=== PATIENT | male | born 1960 | race Caucasian/White ===

== ENCOUNTER 2023-09-25 12:44 | Inpatient (IN) | payer MEDICARE, OTHER ==
[~2023-09-25] VITALS: Ht 167.6 cm; Wt 65.8 kg
[2023-09-25] MEDS ORDERED: ASPI81TA31 PO (13:17)
[2023-09-25] MEDS ORDERED: ALBU2.5V13 NEB (13:17)
[2023-09-25] MEDS ORDERED: HYDR-894 PO (13:17)
[2023-09-25] MEDS ORDERED: ATOR10TA PO (13:17)
[2023-09-25] MEDS ORDERED: MULTIVITAL-M PO (13:17)
[2023-09-25] MEDS ORDERED: BISA10SU61 RC (13:17)
[2023-09-25] MEDS ORDERED: ACET325T53 PO (13:17)
[2023-09-25] MEDS ORDERED: LISI20TA30 PO (13:17)
[2023-09-25] MEDS ORDERED: VITAMIN D3 PO (13:17)
[2023-09-25] MEDS ORDERED: FURO20TA4 PO (13:17)
[2023-09-25] MEDS ORDERED: ASCO500C18 PO (13:17)
[2023-09-25] MEDS ORDERED: METF-494 PO (13:17)
[2023-09-25] MEDS ORDERED: DOCU100T2 PO (13:17)
[2023-09-25] MEDS ORDERED: LACT10SO58 PO (13:17)
[2023-09-25] MEDS ORDERED: MAGN400O6 PO (13:17)
[2023-09-25] MEDS ORDERED: ACET-2030 PO (13:17)
[2023-09-25] MEDS ORDERED: ATOR20TA PO (13:17)
[2023-09-25] MEDS ORDERED: NA P133E RC (13:17)
[2023-09-25] MEDS ORDERED: AMLO-212 PO (13:17)
[2023-09-25] MEDS ORDERED: MELA5TAB20 PO (13:17)
[2023-09-25 13:36] LABS: BASOPHILS # (AUTO) 0.1 K/UL (0.0-0.2); BASOPHILS % (AUTO) 2.4 % (0.0-2.0); DIFFERENTIAL COMMENT 0; EOSINOPHILS # (AUTO) 0.1 K/uL (0.0-0.7); EOSINOPHILS % (AUTO) 1.6 % (0.0-7.0); HEMATOCRIT 23.7 % (36.7-47.1); LYMPHOCYTES # (AUTO) 1.3 K/uL (0.8-4.8); LYMPHOCYTES % (AUTO) 29.4 % (20.5-51.5); MEAN CORPUSCULAR HEMOGLOBIN 28.4 uug (23.8-33.4); MEAN CORPUSCULAR HGB CONC 31 g/dL (32.5-36.3); MEAN CORPUSCULAR VOLUME 90.6 fL (73.0-96.2); MONOCYTES # (AUTO) 0.4 K/uL (0.1-1.30); MONOCYTES % (AUTO) 8.7 % (0.0-11.0); NEUTROPHILS # (AUTO) 2.6 K/uL (1.8-8.9); NEUTROPHILS % (AUTO) 57.9 % (38.5-71.5); PLATELET COUNT (AUTO) 185 K/uL (152-348); RED BLOOD CELL COUNT(AUTO) 2.62 MIL/uL (4.06-5.63); RED CELL DISTRIBUTION WIDTH 16.9 % (12.1-16.2); WHITE BLOOD COUNT (AUTO) 4.4 K/uL (3.6-10.2)
[2023-09-25 13:56] LABS: ETHANOL < 3 MG/DL (0-10)
[2023-09-25 13:59] LABS: ALANINE AMINOTRANSFERASE 13 U/L (16-63); ALBUMIN 2.7 g/dL (3.4-5.0); ALKALINE PHOSPHATASE 74 U/L (50-136); ASPARTATE AMINOTRANSFERASE < 5 U/L (15-37); BILIRUBIN,TOTAL 0.2 mg/dL (0.2-1.0); CALCIUM 8.6 mg/dL (8.5-10.1); CARBON DIOXIDE 21 mmol/L (21-32); CHLORIDE 109 mmol/L (98-107); CREATININE 1.8 mg/dL (0.6-1.3); GLUCOSE 110 mg/dL (74-106); POTASSIUM 6.1 mmol/L (3.5-5.1); SODIUM SERUM 137 mmol/L (136-145); UREA NITROGEN, BLOOD 59 mg/dL (7-18)
[2023-09-25 14:00] LABS: BILIRUBIN,DIRECT < 0.1 mg/dL (0.0-0.2)
[2023-09-25 14:01] LABS: HEMOGLOBIN 7.4 g/dL (12.5-16.3)
[2023-09-25 14:04] LABS: THYROID STIMULATING HORMONE 3.547 mIU/mL (0.358-3.740)
[2023-09-25] MEDS ORDERED: ALBUTEROL SULFATE 2.5 MG/ 0.5 ML NEBU NEB ONE (14:30)
[2023-09-25] MEDS ORDERED: ALBUTEROL SULFATE 2.5 MG/ 0.5 ML NEBU ONE (14:44)
[2023-09-25 14:50] VITALS: O2SAT 98; O2SAT 99
[2023-09-25 15:20] VITALS: O2SAT 99
[2023-09-25] MEDS ORDERED: REMEDY ESSENTIAL ZINC PASTE 113 GM TP PRN (19:45)
[2023-09-25] MEDS ORDERED: MAGNESIUM HYDROXIDE 30 ML LIQUID UDC PO PRN (19:45)
[2023-09-25] MEDS ORDERED: ONDANSETRON 4 MG/2 ML VIAL IV PRN (19:45)
[2023-09-25] MEDS ORDERED: SODIUM POLYSTYRENE SULFONATE 15 G/60 ML LIQUID UDC PO ONE (19:45)
[2023-09-25] MEDS ORDERED: IV NS 1000 ML 1,000 ML IV SCH (19:45)
[2023-09-25] MEDS ORDERED: ACETAMINOPHEN 325 MG TABLET PO PRN (19:45)
[2023-09-26] MEDS ORDERED: IV NS 1000 ML 1,000 ML IV PRN (05:43)
[2023-09-26 07:52] LABS: CALCIUM 8.6 mg/dL (8.5-10.1); CREATININE 1.9 mg/dL (0.6-1.3); MAGNESIUM 2.3 mg/dL (1.8-2.4); PHOSPHOROUS 5.1 mg/dL (2.5-4.9); POTASSIUM 5.7 mmol/L (3.5-5.1)
[2023-09-26 07:58] LABS: BASOPHILS # (AUTO) 0.1 K/UL (0.0-0.2); BASOPHILS % (AUTO) 1.7 % (0.0-2.0); DIFFERENTIAL COMMENT 0; EOSINOPHILS % (AUTO) 0.7 % (0.0-7.0); HEMATOCRIT 21.3 % (36.7-47.1); LYMPHOCYTES # (AUTO) 1.2 K/uL (0.8-4.8); LYMPHOCYTES % (AUTO) 27.4 % (20.5-51.5); MEAN CORPUSCULAR HEMOGLOBIN 28.6 uug (23.8-33.4); MEAN CORPUSCULAR HGB CONC 32 g/dL (32.5-36.3); MEAN CORPUSCULAR VOLUME 89.6 fL (73.0-96.2); MONOCYTES # (AUTO) 0.3 K/uL (0.1-1.30); MONOCYTES % (AUTO) 7.5 % (0.0-11.0); NEUTROPHILS # (AUTO) 2.7 K/uL (1.8-8.9); NEUTROPHILS % (AUTO) 62.7 % (38.5-71.5); PLATELET COUNT (AUTO) 173 K/uL (152-348); RED CELL DISTRIBUTION WIDTH 16.5 % (12.1-16.2); WHITE BLOOD COUNT (AUTO) 4.3 K/uL (3.6-10.2)
[2023-09-26] MEDS ORDERED: SODIUM POLYSTYRENE SULFONATE 15 G/60 ML LIQUID UDC PO ONE (08:15)
[2023-09-26 08:35] LABS: HEMOGLOBIN 6.8 g/dL (12.5-16.3); RED BLOOD CELL COUNT(AUTO) 2.38 MIL/uL (4.06-5.63)
[2023-09-26 09:09] VITALS: BP 96/62; TEMP 97.6; O2SAT 99
[2023-09-26] MEDS ORDERED: ALBUTEROL SULFATE 2.5 MG/ 0.5 ML NEBU NEB PRN (10:30)
[2023-09-26] MEDS ORDERED: FLEET ENEMA 133 ML BOTTLE RC PRN (10:30)
[2023-09-26] MEDS ORDERED: MAGNESIUM HYDROXIDE 30 ML LIQUID UDC PO PRN (10:30)
[2023-09-26] MEDS ORDERED: BISACODYL 10 MG SUPP.RECT RC PRN (10:30)
[2023-09-26] MEDS ORDERED: ACETAMINOPHEN ES 500 MG TABLET PO PRN (10:30)
[2023-09-26] MEDS: SODIUM BICARBONATE 8.4% 100 MEQ in IV D5 1/2 NS 1000 ML 1,000 ML IV SCH (11:06)
[2023-09-26 11:40] VITALS: BP 109/53; TEMP 98.2; O2SAT 98
[2023-09-26 16:08] VITALS: BP 112/52; TEMP 98.5; O2SAT 97
[2023-09-26] MEDS ORDERED: LORAZEPAM 2 MG/1 ML VIAL IV PRN (16:30)
[2023-09-26] MEDS: DOCUSATE SODIUM 100 MG CAPSULE PO SCH (17:00)
[2023-09-26] MEDS: hydrALAZINE HCL 25 MG TABLET PO SCH (17:00)
[2023-09-26] MEDS: LACTULOSE 20 G/30 ML LIQUID UDC PO SCH (17:00)
[2023-09-26 17:01] LABS: BAND % (MANUAL) 1 % (0-10); EOSINOPHILS % (MANUAL) 1 % (0-8); LYMPHOCYTES % (MANUAL) 29 % (20-40); MONOCYTES % (MANUAL) 6 % (2-10); NEUTROPHILS % (MANUAL) 63 % (42-75)
[2023-09-26 17:02] LABS: ANISOCYTOSIS 2+; PLATELET ESTIMATE ADEQUATE
[2023-09-26 20:28] VITALS: BP 130/64; TEMP 98.4; O2SAT 97
[2023-09-27] VITALS (11 sets, daily range): BP systolic 109–125; BP diastolic 51–75; TEMP 97.3–98.7; O2SAT 96–99
[2023-09-27] MEDS: ASPIRIN 81 MG TAB.CHEW PO SCH (08:41)
[2023-09-27] MEDS: DOCUSATE SODIUM 100 MG CAPSULE PO SCH ×2 (08:42→16:51)
[2023-09-27] MEDS: LACTULOSE 20 G/30 ML LIQUID UDC PO SCH ×2 (08:43→16:51)
[2023-09-27] MEDS: SODIUM BICARBONATE 8.4% 100 MEQ in IV D5 1/2 NS 1000 ML 1,000 ML IV SCH (08:44)
[2023-09-27] MEDS: AMLODIPINE 5 MG TABLET PO SCH (08:54)
[2023-09-27] MEDS: hydrALAZINE HCL 25 MG TABLET PO SCH ×2 (08:54→16:52)
[2023-09-27] MEDS ORDERED: LISINOPRIL 20 MG TABLET PO SCH (09:00)
[2023-09-27] MEDS: SOD FERRIC GLUC COMPLX/SUCROSE 125 MG in IV NORMAL SALINE 100 ML IV SCH (14:33)
[2023-09-27 15:27] LABS: BASOPHILS # (AUTO) 0.1 K/UL (0.0-0.2); BASOPHILS % (AUTO) 1.3 % (0.0-2.0); EOSINOPHILS # (AUTO) 0.1 K/uL (0.0-0.7); EOSINOPHILS % (AUTO) 2.4 % (0.0-7.0); HEMATOCRIT 21.5 % (36.7-47.1); LYMPHOCYTES # (AUTO) 1.1 K/uL (0.8-4.8); LYMPHOCYTES % (AUTO) 22.9 % (20.5-51.5); MEAN CORPUSCULAR HEMOGLOBIN 28.6 uug (23.8-33.4); MEAN CORPUSCULAR HGB CONC 32 g/dL (32.5-36.3); MEAN CORPUSCULAR VOLUME 89.1 fL (73.0-96.2); MONOCYTES # (AUTO) 0.4 K/uL (0.1-1.30); MONOCYTES % (AUTO) 9.5 % (0.0-11.0); NEUTROPHILS % (AUTO) 63.9 % (38.5-71.5); PLATELET COUNT (AUTO) 169 K/uL (152-348); RED CELL DISTRIBUTION WIDTH 16.5 % (12.1-16.2); WHITE BLOOD COUNT (AUTO) 4.7 K/uL (3.6-10.2)
[2023-09-27 15:38] LABS: DIFFERENTIAL COMMENT 1; RED BLOOD CELL COUNT(AUTO) 2.41 MIL/uL (4.06-5.63)
[2023-09-27 15:39] LABS: HEMOGLOBIN 6.9 g/dL (12.5-16.3)
[2023-09-27 15:43] LABS: IRON, SERUM 76 ug/dL (50-175)
[2023-09-27 16:05] LABS: ALBUMIN 2.5 g/dL (3.4-5.0); BILIRUBIN,TOTAL 0.2 mg/dL (0.2-1.0); CALCIUM 8.2 mg/dL (8.5-10.1); CREATININE 2.1 mg/dL (0.6-1.3); MAGNESIUM 2.1 mg/dL (1.8-2.4); PHOSPHOROUS 3.5 mg/dL (2.5-4.9); POTASSIUM 5.2 mmol/L (3.5-5.1); TOTAL PROTEIN, SERUM 5.5 g/dL (6.4-8.2)
[2023-09-28 00:53] VITALS: BP 126/69; TEMP 98.3; O2SAT 96
[2023-09-28 04:48] VITALS: BP 117/65; TEMP 98.3; O2SAT 94
[2023-09-28 07:12] LABS: BASOPHILS % (AUTO) 1.1 % (0.0-2.0); EOSINOPHILS # (AUTO) 0.1 K/uL (0.0-0.7); EOSINOPHILS % (AUTO) 2.4 % (0.0-7.0); HEMATOCRIT 24.5 % (36.7-47.1); LYMPHOCYTES # (AUTO) 1.3 K/uL (0.8-4.8); MEAN CORPUSCULAR HEMOGLOBIN 28.8 uug (23.8-33.4); MEAN CORPUSCULAR HGB CONC 33 g/dL (32.5-36.3); MEAN CORPUSCULAR VOLUME 88.8 fL (73.0-96.2); MONOCYTES # (AUTO) 0.5 K/uL (0.1-1.30); MONOCYTES % (AUTO) 10.2 % (0.0-11.0); NEUTROPHILS # (AUTO) 2.5 K/uL (1.8-8.9); NEUTROPHILS % (AUTO) 56.3 % (38.5-71.5); PLATELET COUNT (AUTO) 167 K/uL (152-348); RED BLOOD CELL COUNT(AUTO) 2.76 MIL/uL (4.06-5.63); RED CELL DISTRIBUTION WIDTH 15.8 % (12.1-16.2); WHITE BLOOD COUNT (AUTO) 4.5 K/uL (3.6-10.2)
[2023-09-28 07:25] LABS: CALCIUM 8.2 mg/dL (8.5-10.1); CREATININE 1.7 mg/dL (0.6-1.3); POTASSIUM 4.5 mmol/L (3.5-5.1)
[2023-09-28 07:35] LABS: DIFFERENTIAL COMMENT 1
[2023-09-28] MEDS: SODIUM BICARBONATE 8.4% 100 MEQ in IV D5 1/2 NS 1000 ML 1,000 ML IV SCH (08:20)
[2023-09-28] MEDS: LACTULOSE 20 G/30 ML LIQUID UDC PO SCH ×2 (08:40→16:19)
[2023-09-28] MEDS: ASPIRIN 81 MG TAB.CHEW PO SCH (08:40)
[2023-09-28] MEDS: hydrALAZINE HCL 25 MG TABLET PO SCH ×2 (08:42→16:19)
[2023-09-28] MEDS: AMLODIPINE 5 MG TABLET PO SCH (08:43)
[2023-09-28] MEDS: DOCUSATE SODIUM 100 MG CAPSULE PO SCH ×2 (08:44→16:18)
[2023-09-28] MEDS ORDERED: SODIUM BICARBONATE 8.4% 100 MEQ in IV D5 1/2 NS 1000 ML 1,000 ML IV PRN (08:54)
[2023-09-28 11:43] VITALS: BP 109/62; TEMP 98.5; O2SAT 96
[2023-09-28] MEDS: SOD FERRIC GLUC COMPLX/SUCROSE 125 MG in IV NORMAL SALINE 100 ML IV SCH (13:46)
[2023-09-28 15:44] VITALS: BP 136/74; TEMP 98.4; O2SAT 96
[2023-09-28 20:00] VITALS: BP 139/73; TEMP 98.1; O2SAT 97
[2023-09-29] VITALS: BP 140/76; TEMP 98.3; O2SAT 96
[2023-09-29] MEDS: REMEDY ESSENTIAL ZINC PASTE 113 GM TP SCH ×2 (00:29→09:37)
[2023-09-29 04:00] VITALS: BP 91/60; TEMP 97.8; O2SAT 96
[2023-09-29 08:30] LABS: BASOPHILS # (AUTO) 0.1 K/UL (0.0-0.2); BASOPHILS % (AUTO) 1.1 % (0.0-2.0); EOSINOPHILS # (AUTO) 0.1 K/uL (0.0-0.7); EOSINOPHILS % (AUTO) 1.8 % (0.0-7.0); HEMATOCRIT 25.7 % (36.7-47.1); HEMOGLOBIN 8.5 g/dL (12.5-16.3); LYMPHOCYTES # (AUTO) 1.2 K/uL (0.8-4.8); MEAN CORPUSCULAR HEMOGLOBIN 29.4 uug (23.8-33.4); MEAN CORPUSCULAR HGB CONC 33 g/dL (32.5-36.3); MEAN CORPUSCULAR VOLUME 88.9 fL (73.0-96.2); MONOCYTES # (AUTO) 0.6 K/uL (0.1-1.30); MONOCYTES % (AUTO) 10.2 % (0.0-11.0); NEUTROPHILS # (AUTO) 3.6 K/uL (1.8-8.9); NEUTROPHILS % (AUTO) 64.9 % (38.5-71.5); PLATELET COUNT (AUTO) 169 K/uL (152-348); RED CELL DISTRIBUTION WIDTH 16.1 % (12.1-16.2); WHITE BLOOD COUNT (AUTO) 5.6 K/uL (3.6-10.2)
[2023-09-29 08:42] LABS: CALCIUM 8.2 mg/dL (8.5-10.1); CREATININE 1.6 mg/dL (0.6-1.3); POTASSIUM 4.6 mmol/L (3.5-5.1)
[2023-09-29 08:43] LABS: DIFFERENTIAL COMMENT 1
[2023-09-29] MEDS: ASPIRIN 81 MG TAB.CHEW PO SCH (09:34)
[2023-09-29] MEDS: hydrALAZINE HCL 25 MG TABLET PO SCH (09:35)
[2023-09-29] MEDS: LACTULOSE 20 G/30 ML LIQUID UDC PO SCH (09:36)
[2023-09-29] MEDS: DOCUSATE SODIUM 100 MG CAPSULE PO SCH (09:36)
[2023-09-29] MEDS: AMLODIPINE 5 MG TABLET PO SCH (09:36)
[2023-09-29 09:58] VITALS: BP 148/74; TEMP 98; O2SAT 96
[2023-09-29 11:32] VITALS: BP 148/70; TEMP 97.7; O2SAT 96
[2023-09-30 08:08] LABS: A/G RATIO 1.2 (0.7-1.7); ALBUMIN 2.7 g/dL (2.9-4.4); ALPHA-1-GLOBULIN 0.2 g/dL (0.0-0.4); ALPHA-2-GLOBULIN 0.7 g/dL (0.4-1.0); GAMMA GLOBULIN 0.4 g/dL (0.4-1.8); GLOBULIN, TOTAL 2.3 g/dL (2.2-3.9); M-SPIKE 0.5 g/dL (Not Observed)
== END 2023-09-29 12:55 | DRG 682 ==
LOC: ER 12:44 → TELE3 20:35 → MEDSURG3 09-29 09:30
PROVIDERS: ADMIT Internal Medicine; ATTEND Internal Medicine
PROC: 05HC33Z Insertion of Infusion Device into Left Basilic Vein, Percutaneous Approach (ICD-10-PCS; principal; 2023-09-27)
PROC: 30233N1 Transfusion of Nonautologous Red Blood Cells into Peripheral Vein, Percutaneous Approach (ICD-10-PCS; 2023-09-27)
DX: N17.0 Acute kidney failure with tubular necrosis (principal); G93.41 Metabolic encephalopathy; I13.0 Hypertensive heart and chronic kidney disease with heart failure and stage 1 through stage 4 chronic kidney disease, or unspecified chronic kidney disease; I50.32 Chronic diastolic (congestive) heart failure; E87.20 Acidosis, unspecified; E87.5 Hyperkalemia; Z66 Do not resuscitate; D63.8 Anemia in other chronic diseases classified elsewhere; E11.22 Type 2 diabetes mellitus with diabetic chronic kidney disease; N18.9 Chronic kidney disease, unspecified; Z79.84 Long term (current) use of oral hypoglycemic drugs; J44.9 Chronic obstructive pulmonary disease, unspecified; Z79.899 Other long term (current) drug therapy; N25.0 Renal osteodystrophy; H26.9 Unspecified cataract; Z86.718 Personal history of other venous thrombosis and embolism; G30.9 Alzheimer's disease, unspecified; F02.80 Dementia in other diseases classified elsewhere, unspecified severity, without behavioral disturbance, psychotic disturbance, mood disturbance, and anxiety; E78.5 Hyperlipidemia, unspecified; Z79.82 Long term (current) use of aspirin; Z86.59 Personal history of other mental and behavioral disorders
CPT/HCPCS: 36415; 70030-TC; 83550; 83735; 83970; 84100; 84155; 84165; 84443; 85025; 86850; 86900; 86901; 86920; 93005; A4663; A9150; G0378; G0480; J2060; J2916; J3490; J7040; P9016